=== PATIENT | male | born 1950 | race Caucasian/White ===

== ENCOUNTER → 2024-04-20 06:08 | Outpatient (REF) | payer MEDICARE, BC, SELFPAY ==
[2024-04-20 09:26] LABS: ALT (SGPT) 21 U/L (0-50); AST (SGOT) 23 U/L (17-59); Albumin 4.6 g/dl (3.5-5.0); Blood Urea Nitrogen 30 mg/dl (9-20); Calcium 9.5 mg/dl (8.4-10.2); Carbon Dioxide 31 mmol/L (22-30); Chloride 96 mmol/L (98-107); Glucose 156 mg/dl (70-99); HDL Cholesterol 54 mg/dl; LDL Cholesterol, Calculated 24 mg/dl; Phosphorus 3.8 mg/dl (2.5-4.5); Potassium 4.3 mmol/L (3.5-5.1); Sodium 139 mmol/L (135-145); Total Cholesterol 93 mg/dl (50-199); Triglyceride 77 mg/dl (10-149); Very Low Density Lipoprotein 15 mg/dl (0-30); eGFR > 60.00
== END ==
LOC: HWLAB 06:08
PROVIDERS: ATTENDING PHYSICIAN Internal Medicine Cardiovascular Disease; FAMILY PHYSICIAN Internal Medicine
DX: I48.0 Paroxysmal atrial fibrillation (principal); I50.22 Chronic systolic (congestive) heart failure; E78.00 Pure hypercholesterolemia, unspecified
CPT/HCPCS: 36415; 80061; 80069; 84450; 84460

== ENCOUNTER → 2024-10-11 10:23 | Outpatient (REF) | payer MEDICARE, BC, SELFPAY | LOC: MRI 3T 10:23 | PROVIDERS: ATTENDING PHYSICIAN Urology; FAMILY PHYSICIAN Internal Medicine | DX: R97.20 Elevated prostate specific antigen [PSA] (principal) | CPT/HCPCS: 72197; A9575 ==

== ENCOUNTER 2024-10-16 17:30 | Emergency (ER) | payer MEDICARE, BC, SELFPAY ==
[2024-10-16 17:33] VITALS: BP 165/81
[2024-10-16 17:55] LABS: % Basophils 0.5 % (0-2); % Eosinophils 2.1 % (0-6); % Immature Granulocytes 0.4 % (0-0.5); % Lymphocytes 17.8 % (20.5-51.1); % Monocytes 6.4 % (1.7-9.3); % Neutrophils 72.8 % (42.2-75.2); Absolute Basophils 0.1 10^3/uL (0-0.2); Absolute Eosinophils 0.2 10^3/uL (0-0.7); Absolute Lymphocytes 1.7 10^3/uL (1.2-3.4); Absolute Monocytes 0.6 10^3/uL (0.1-0.6); Absolute Neutrophils 6.9 10^3/uL (1.4-6.5); Hematocrit 41.2 % (39.0-52.0); Hemoglobin 13.6 g/dL (13.0-18.0); Mean Corpuscular Hgb 27.3 pg (27.0-31.0); Mean Corpuscular Volume 82.6 fL (80.0-94.0); Mean Platelet Volume 10.8 fL (7.4-10.4); Nucleated Red Blood Cells % 0 % (-); Platelet Count 202 10^3/uL (130-400); Red Blood Cell Count 4.99 10^6/uL (4.70-6.10); Red Cell Dist. Width 13.5 % (11.5-14.5); White Blood Cell Count 9.4 10^3/uL (4.8-10.8)
[2024-10-16 18:10] LABS: ALT (SGPT) 25 U/L (0-50); AST (SGOT) 25 U/L (17-59); Albumin 4.7 g/dl (3.5-5.0); Alkaline Phosphatase 51 U/L (38-126); Blood Urea Nitrogen 20 mg/dl (9-20); Calcium 9.8 mg/dl (8.4-10.2); Carbon Dioxide 28 mmol/L (22-30); Chloride 102 mmol/L (98-107); Glucose 208 mg/dl (70-99); Potassium 4.8 mmol/L (3.5-5.1); Sodium 139 mmol/L (135-145); Total Bilirubin 0.5 mg/dl (0.2-1.3); Total Protein 7.2 g/dl (6.3-8.2); eGFR > 60.00
[2024-10-16 19:48] VITALS: BP 157/104
[2024-10-16 19:52] VITALS: BMI 29.7
--- NOTE | 2024-10-16 20:12 | ED.GENMED ---
History of Present Illness
General
Chief Complaint: Heart Rate Problem
Source: patient
Exam Limitations: none
Time Seen by Provider: 10/16/24 20:11
Nursing documentation reviewed up to this point in time: agreed with
History of Present Illness
History of Present Illness:
The patient is a 74-year-old man with a past medical history of A-fib and a flutter, on Eliquis, who presents with feelings of being in A-fib. Patient reports that at times he feels slightly short of breath but currently has no shortness of breath.
He denies all lightheadedness and chest pain. Patient reports he feels well. Patient reports he is due for a cardiac echo tomorrow and has an appointment for this. He denies leg pain and leg swelling. He denies cough and fever.
Past History
Past History
ED Past Medical History: Arrthythmia, HTN and NIDDM
ED Past Surgical History: Other
Social History
Tobacco: Former smoker
Alcohol: None
Drug: None
Personal:
Living: with family
Employment: Other
Family History
Family History: Other
Review of Systems
Review of Systems
Allergies reviewed?: Yes
All Other Systems: ROS reviewed and negative except as documented in HPI and ROS
Constitutional: Reports no symptoms
EENT: Reports no symptoms
Respiratory: Reports trouble breathing
Cardiac: Reports no symptoms
ABD/GI: Reports no symptoms
: Reports no symptoms
Musculoskeletal: Reports no symptoms
Skin: Reports no symptoms
Neurological: Reports no symptoms
Endocrine: Reports no symptoms
Hematologic/Lymphatic: Reports no symptoms
Psychiatric: Reports no symptoms
Phy Exam
Physical Exam
Physical Exam:
Physical Exam
General: no apparent distress, not acutely ill. Well appearing, smiling and conversational
Neck: supple. no meningeal signs. normal psoterior pharynx
Heart: Regular rate, irregular rhythm
Lungs: no acute respiratory distress. clear bilaterally. Breathing comfortably. No crackles
Abdomen: normal bowel sounds. not tender. no CVAT
Neuro: alert and oriented. no focal neurological deficits
Skin: no rash
Psychiatric: well kept. interactive and cooperative
Extremities: no edema. no calf tenderness. negative homans. good distal pulses
Course
Orders/Labs/Results
Orders:
Orders
10/16/24 17:32
Electrocardiogram (*1) Urgent
Reason for Study: Atrial Fibrillation
EKG- Treatment ONCE
10/16/24 17:47
Complete Blood Count/With Diff Urgent
Comprehensive Metabolic Panel Urgent
Abnormal Lab Results
10/16/24
17:47
MPV 10.8 H fL
(7.4-10.4)
Absolute Neuts (auto) 6.9 H 10^3/uL
(1.4-6.5)
Lymphocytes % 17.8 L %
(20.5-51.1)
Glucose 208 H mg/dl
(70-99)
10/16/24 17:47
10/16/24 17:47
Vital Signs
Initial and Last Documented VS:
Initial Vital Signs
Temp Pulse Resp BP Pulse Ox
97.7 F 75 18 165/81 98
10/16/24 17:33 10/16/24 17:33 10/16/24 17:33 10/16/24 17:33 10/16/24 17:33
Last Documented Vital Signs
Temp Pulse Resp BP Pulse Ox
97.7 F 95 21 157/104 98
10/16/24 17:33 10/16/24 19:49 10/16/24 19:49 10/16/24 19:48 10/16/24 19:49
MDM/Problems Addressed
Differential Diagnosis Includes:
Acute exacerbation of a flutter, CHF, pneumonia
MDM/Problems Addressed:
Patient presents with acute A flutter with rates from 80s to 120
Chronic conditions affecting care: Arrhythmia
Acute Exacerbation and/or Progression of Chronic Illness:
Patient has acute a flutter
*Pulse Oximetry
Patient hypoxic: no (98% on room air)
*EKG
Interpreted by ED Provider?: Yes
Interpretation: abnormal
Comparison EKG: changes noted
Rate: normal
Rhythm: atrial flutter
[place]: normal axis
Interval: normal interval
QRS Pattern: normal QRS
Ischemia: non-specific ST changes
*Genetic Counselor Interpretation
Rate: normal
Interpretation: abnormal
Rhythm: atrial flutter
*Critical Care Note
Total Time (30-74mins, 75-104mins- exclusive of procedures): Not Applicable
Data Reviewed
Review of Other/Old Records Reveals: Testing (Normal cardiac echo 2022)
Source: patient
Patient Management
Social determinants of health affecting care: Living situation and Strong social support
Escalation/DeEscalation of care consider admission/obs:
Patient appears extremely comfortable and well. He denies current shortness of breath to me. He denies all chest pain and dizziness. Patient reports he is not even able to really tell he is in A flutter. Heart rate is generally below 100. The
highest I have seen it is 120 but patient is asymptomatic. Therefore, I feel patient could go home. He is on Eliquis and states he is compliant with it
ED Attending Note
-
Portions of this chart may have been created with voice recognition software.� Occasional wrong word or��sound alike� substitutions may have occurred due to the inherent limitations of voice recognition software.
Discharge Plan
Departure
Patient Disposition: Home (Routine Discharge)
Date of Disposition: 10/16/24
Time of Disposition: 20:25
Patient with high blood pressure during this ER visit?: Yes
Condition: Good
Covid-19: Not Applicable
Discharge Problem:
Atrial flutter
Instructions: Atrial fibrillation and atrial flutter - ED discharge instructions, BLOOD PRESSURE
Prescriptions:
No Action
loratadine 10 MG tablet
10 mg PO DAILYPRN PRN (Reason: allergy/cold symptoms)
Eliquis 5 MG tablet
5 mg PO BID Qty: 60 3RF
furosemide [Lasix] 40 MG tablet
40 mg PO DAILY Qty: 30 3RF
metoprolol succinate 50 MG tablet extended release 24 hr
50 mg PO DAILY Qty: 30 3RF
spironolactone 25 mg Tablet
25 mg PO QID
losartan 100 mg Tablet
100 mg PO DAILY
rosuvastatin 5 mg Tablet
5 mg PO DAILY
insulin degludec [Tresiba FlexTouch U-100] 100 unit/mL (3 mL) Insulin Pen
14 unit SC DAILY
dapagliflozin propanediol [Farxiga] 10 mg Tablet
10 mg PO DAILY
Activity Restrictions/Additional Instructions:
Follow-up with your cardiac echo tomorrow. Return with any feelings of faintness, chest pain or shortness of breath
Interventions
Interventions:
*Risk Screen - Suicide Last Done: 10/16/24 17:33
*General Assessment Last Done: 10/16/24 17:33
*Neglect/Abuse Screening Last Done: 10/16/24 19:52
*ED- Fall Risk Assessment Last Done: 10/16/24 19:52
*ED COVID-19 Vaccine History Last Done: 10/16/24 19:52
*Nursing Disposition Last Done: 10/16/24 20:31
ED- Cardiac Assessment Last Done: 10/16/24 20:18
ED- Pulmonary Assessment Last Done: 10/16/24 20:18
Discharge Date and Time
Discharge Date/Time: 10/16/24 20:39
Print Language: MAORI
== END 2024-10-16 20:39 | disposition home or self-care (01) ==
LOC: EMR 17:30
PROVIDERS: EMERGENCY PHYSICIAN Emergency Medicine
DX: I48.92 Unspecified atrial flutter (principal); I48.91 Unspecified atrial fibrillation; E11.9 Type 2 diabetes mellitus without complications; I10 Essential (primary) hypertension; Z79.01 Long term (current) use of anticoagulants; Z87.891 Personal history of nicotine dependence
CPT/HCPCS: 99284; 80053; 85025; 93005

== ENCOUNTER → 2024-10-17 09:26 | Outpatient (REF) | payer MEDICARE, BC, SELFPAY | LOC: RCS 09:26 | PROVIDERS: ATTENDING PHYSICIAN Internal Medicine Cardiovascular Disease; FAMILY PHYSICIAN Internal Medicine | DX: I48.91 Unspecified atrial fibrillation (principal) | CPT/HCPCS: 93005 ==

== ENCOUNTER 2024-10-21 09:19 | Day surgery (SDC) | payer MEDICARE, BC, SELFPAY ==
[2024-10-21 10:12] LABS: Glucose - Point of Care 147 mg/dl (70-99)
== END 2024-10-21 10:46 | disposition home or self-care (01) ==
LOC: CATH 09:19
PROVIDERS: ATTENDING PHYSICIAN Student in an Organized Health Care Education/Training Program; FAMILY PHYSICIAN Internal Medicine; OTHER PHYSICIAN Internal Medicine Cardiovascular Disease
DX: I48.92 Unspecified atrial flutter (principal); I48.0 Paroxysmal atrial fibrillation; I10 Essential (primary) hypertension; I70.0 Atherosclerosis of aorta; E11.9 Type 2 diabetes mellitus without complications; Z87.891 Personal history of nicotine dependence; Z79.01 Long term (current) use of anticoagulants; Z79.84 Long term (current) use of oral hypoglycemic drugs; Z79.4 Long term (current) use of insulin
CPT/HCPCS: 82962; 92960; 93005

== ENCOUNTER 2024-12-11 16:03 | Inpatient (IN) | payer MEDICARE, BC, SELFPAY ==
[2024-12-11] VITALS (20 sets, daily range): BP systolic 74–182; BP diastolic 47–115; BMI 29.8
[2024-12-11 14:12] LABS: Hematocrit 39.8 % (39.0-52.0); Hemoglobin 13.0 g/dL (13.0-18.0); Mean Corp Hgb Conc. 32.7 g/dL (33.0-37.0); Mean Corpuscular Volume 82.7 fL (80.0-94.0); Nucleated Red Blood Cells % 0 % (-); Platelet Count 195 10^3/uL (130-400); Red Cell Dist. Width 14.7 % (11.5-14.5)
[2024-12-11 14:29] LABS: ALT (SGPT) 24 U/L (0-50); AST (SGOT) 28 U/L (17-59); Albumin 4.9 g/dl (3.5-5.0); Alkaline Phosphatase 47 U/L (38-126); Blood Urea Nitrogen 26 mg/dl (9-20); Calcium 9.9 mg/dl (8.4-10.2); Carbon Dioxide 31 mmol/L (22-30); Chloride 98 mmol/L (98-107); Glucose 185 mg/dl (70-99); Potassium 4.9 mmol/L (3.5-5.1); Sodium 137 mmol/L (135-145); Total Protein 7.4 g/dl (6.3-8.2); eGFR > 60.00
--- NOTE | 2024-12-11 14:30 | ED.GENMED ---
History of Present Illness
General
Chief Complaint: Rectal Bleeding
Source: patient
Exam Limitations: none
Time Seen by Provider: 12/11/24 14:19
History of Present Illness
History of Present Illness:
74yoM with a history of atrial fibrillation on Eliquis presenting for evaluation of rectal bleeding. Patient underwent a prostate biopsy 2 days ago at [facility] with Dr. Aurelio Agosto. His Eliquis was held for 2 days before the procedure
and resumed the night of the procedure. He has been having minor bleeding since the biopsy. He had a BM this morning which was normal. He felt like he had to have another BM about an hour ago. He passed a large amount of dark red blood with
clots and came to the ED. He continues to report active bleeding. No dizziness, syncope, shortness of breath.
Past History
Past History
ED Past Medical History: Arrthythmia, HTN and NIDDM
ED Past Surgical History: Other
Social History
Tobacco: Former smoker
Alcohol: None
Drug: None
Personal:
Living: with family
Employment: Other
Family History
Family History: Other
Phy Exam
General Physical Exam
General Presentation: well appearing
General Skin: warm and dry
General Habitus: normal
General Mental: alert
ENT Exam
ENT Exam: normocephalic
Gastrointestinal Exam
Gastrointestinal Exam: non tender, soft and non distended
Rectal Exam: other (Bright red blood oozing from rectum with large amount of blood on diaper.)
Neurological Exam
Neurological Exam: alert
Oxford Coma Scale
Eye Opening: Spontaneous
Verbal Response: Oriented
Motor Response: Obeys Commands
GCS Total Score: 15
Skin Exam
Skin Exam: normal color and warm/dry
Psychiatric Exam
Psychiatric Exam: normal mood/affect
Course
Orders/Labs/Results
Orders:
Orders
12/11/24 13:55
Cardiac Monitoring- Treatment ONCE
12/11/24 14:00
Type+Screen Urgent
Complete Blood Count/With Diff Urgent
Comprehensive Metabolic Panel Urgent
PTT Urgent
Prothrombin Time Urgent
12/11/24 14:33
Cardiac Monitoring- Treatment ONCE
12/11/24 15:05
ColoRectal Surgery Consult Urgent
Consulting Provider: Errol Miller
Was physician already notified: Yes
12/11/24 15:12
Prothrombin Complex(Pcc),Human [Kcentra] 2,126 unit Empty Viaflex Container 100 ml [Viaflex Empty Container] 80 ml IV NOW
Does patient have a dx of serious acute active bleeding?: Yes
Does patient have prior history of HIT?: No
12/11/24 15:32
Admit/Transfer Patient As Directed
Co-Sign Provider:
Level of Care: Inpatient admission
Assign to:: IMU- Intermediate Care
Physician / Group: dinah
Diagnosis: rectal bleeding
Reason for Hospitalization: rectal bleeding
Expected length of stay greater than two midnights?: Yes
ELOS- Estimated Length of Stay in days: 2
I certify the patient meets the requirements for IP care: Yes
PRN Pain Medication Management As Directed
May give lesser potent ordered pain med per pt: Yes
preference::
Protocol:: Medication orders for pain may be administered in a
manner that supports deferring to patient preference
when the pt is:
- Requesting an ordered lesser potent pain medication.
Least to most potent pain medications are defined
as: acetaminophen < NSAID < tramadol < opioids
(morphine, oxycodone, hydromorphone).
- Requesting a lesser dose of the same medication IF
ORDERED.
- Requesting a less intrusive route of administration
if both routes are prescribed by the provider (PO <
IV).
12/11/24 15:33
Code Status As Directed
Resuscitation Status: Full Code
12/11/24 20:06
Activity As Directed
Activity Level: As Tolerated
Pneumatic Compression Sleeves As Directed
Type: Knee high
Vital Signs As Directed
Frequency: Per unit guidelines
DX Deep Vein Thrombosis Video Routine
12/12/24 06:00
Complete Blood Count/With Diff IN AM
Comprehensive Metabolic Panel IN AM
Abnormal Lab Results
12/11/24
14:00
MCHC 32.7 L g/dL
(33.0-37.0)
RDW 14.7 H %
(11.5-14.5)
Absolute Monos (auto) 0.7 H 10^3/uL
(0.1-0.6)
APTT 36.3 H Sec
(23.4-35.0)
Carbon Dioxide 31 H mmol/L
(22-30)
BUN 26 H mg/dl
(9-20)
Glucose 185 H mg/dl
(70-99)
Crossmatch IS Only See Detail
12/11/24 14:00
12/11/24 14:00
Vital Signs
Initial and Last Documented VS:
Initial Vital Signs
Temp Pulse Resp BP Pulse Ox
97.6 F 83 18 182/84 96
12/11/24 13:52 12/11/24 13:52 12/11/24 13:52 12/11/24 13:52 12/11/24 13:52
Last Documented Vital Signs
Temp Pulse Resp BP Pulse Ox
97.4 F 86 14 136/80 100
12/11/24 19:50 12/11/24 20:15 12/11/24 20:15 12/11/24 20:15 12/11/24 20:15
MDM/Problems Addressed
Differential Diagnosis Includes:
74yoM here with heavy rectal bleeding x 1 hour. Prostate biopsy 2 days ago. On Eliquis for afib. He is hypertensive with otherwise stable vitals. Large amount of blood on his diaper with active oozing from the rectum. Differential diagnosis
includes: prostate bleeding, hemorrhoidal bleeding, acute blood loss anemia
Labs obtained in triage show a hemoglobin of 13.0. I reached out to urology who recommended colorectal surgery consult. Dr. Miller saw patient at bedside and Kcentra ordered. Patient admitted for further management.
*Pulse Oximetry
SaO2: 96
Oxygen Mode of Delivery: Room air
Patient hypoxic: no (96%)
*Critical Care Note
Total Time (30-74mins, 75-104mins- exclusive of procedures): Not Applicable
ED Attending Note
-
Portions of this chart may have been created with voice recognition software.� Occasional wrong word or��sound alike� substitutions may have occurred due to the inherent limitations of voice recognition software.
Discharge Plan
Departure
Patient Disposition: Admit
Date of Disposition: 12/11/24
Time of Disposition: 15:07
Presentation/result/management discussed w/ accepting MD/DO: Hospitalist
Discharge Problem:
Rectal bleeding
Interventions
Interventions:
*Risk Screen - Suicide Last Done: 12/11/24 13:52
*General Assessment Last Done: 12/11/24 15:43
*Neglect/Abuse Screening Last Done: 12/11/24 13:54
*ED- Fall Risk Assessment Last Done: 12/11/24 15:43
*ED COVID-19 Vaccine History Last Done: 12/11/24 15:43
*Nursing Disposition Last Done: 12/11/24 18:58
IF-Iaygeo-Rbviwhffwb Assessment Last Done: 12/11/24 16:17
ED- Cardiac Assessment Last Done: 12/11/24 16:16
ED- Pulmonary Assessment Last Done: 12/11/24 16:16
Discharge Date and Time
Discharge Date/Time: 12/11/24 18:59
[2024-12-11 14:31] LABS: INR 1.08; PT 14.3 Sec (11.4-14.6)
[2024-12-11 14:32] LABS: APTT 36.3 Sec (23.4-35.0)
[2024-12-11] MEDS: KCENTRA 80 UNIT IV (15:33)
--- NOTE | 2024-12-11 15:39 | HPS.HSE ---
Addendum entered and electronically signed by Derik Maldonado MD 12/11/24 17:58:
Patient started developing dizziness. Repeat blood pressure 74/47. Patient continues to have mild oozing rectal bleeding. IV fluids being given. 2 units of blood ordered. I let colorectal surgery know, with plan for emergent plan for OR.
Held all diuretics and antihypertensive medications.
Decrease Tresiba to 8 units.
Addendum entered and electronically signed by Derik Maldonado MD 12/11/24 17:07:
Patient with continued bleeding. Check H&H now and q6. NPO past midnight.
Addendum entered and electronically signed by Derik Maldonado MD 12/11/24 16:35:
Started on 5 day course of Cipro 2 days ago. Continue.
Original Note:
Family Physician
-
Family Physician: Corina Ramírez
Chief Complaint
-
rectal bleeding
History of Present Illness
74-year-old male past medical history of atrial fibrillation on Eliquis, cardiomyopathy, hypertension, diabetes, presenting with rectal bleeding. Patient underwent prostate biopsy 2 days ago at at [facility] with Dr. Aurelio Agosto. He
underwent this procedure due to elevated PSA. He did not have any urinary symptoms prior to the procedure.
The day after the procedure he did have some mild rectal bleeding but this had resolved until today. He also did have some blood in the urine without clots but this has been improving. Eliquis was held for 2 days before the procedure and resume the
night of the procedure.
Today he had massive amount of rectal bleeding that was bright red as well as dark with clots. He denies any rectal pain. He has some pain across his lower abdomen. Denies nausea or vomiting. Denies fevers or chills.
Denies smoking. Drinks alcohol occasionally. Denies drugs.
Medical History
Past Medical History
Past Medical History: Reports Other (atrial fibrillation on Eliquis, cardiomyopathy, hypertension, diabetes)
Past Surgical History: Reports None
Social History
Tobacco: Non-smoker
Alcohol: None
Drug: None
Family History
Family History: Not pertinent
Allergies / Home Medications
Allergies reflects when Allergies were last updated in [employer].
Home Medications with original date entered in [employer]
Allergy/Medication List:
Allergies
Allergy/AdvReac Type Severity Reaction Status Date / Time
codeine Allergy Nausea Verified 10/16/24 17:32
Penicillins Allergy Rash Verified 10/16/24 17:32
Home Medications
loratadine 10 mg tablet 10 mg PO DAILYPRN PRN allergy/cold symptoms 08/12/16
apixaban 5 mg tablet (Eliquis) 5 mg PO BID ##60 08/15/16
dapagliflozin propanediol 10 mg tablet (Farxiga) 10 mg PO DAILY 10/16/24
insulin degludec 100 unit/mL (3 mL) subcutaneous pen (Tresiba FlexTouch U-100 insulin) See Rx Instructions .Route .COMPLEX 10/16/24
losartan 100 mg tablet 100 mg PO DAILY 10/16/24
rosuvastatin 5 mg tablet 5 mg PO DAILY 10/16/24
spironolactone 25 mg tablet 25 mg PO Q OTHER DAY 10/16/24
furosemide 40 mg tablet (Lasix) 40 mg PO PRN PRN weight gain 10/21/24
insulin aspart U-100 100 unit/mL (3 mL) subcutaneous pen 14 unit SC TID 10/21/24
metformin 1,000 mg tablet 1,000 mg PO BID 10/21/24
metoprolol succinate 50 mg tablet,extended release 24 hr 100 mg PO DAILY 10/21/24
Review of Systems
-
Constitutional: Reports No Symptoms
EENT: Reports No Symptoms
Respiratory: Reports No Symptoms
Cardiac: Reports No Symptoms
Abdomen/GI: Reports No Symptoms
: Reports No Symptoms
Musculoskeletal: Reports No Symptoms
Skin: Reports No Symptoms
Neurological: Reports No Symptoms
Endocrine: Reports No Symptoms
Hematologic/Lymphatic: Reports No Symptoms
Psych: Reports No Symptoms
Physical Exam
Vital Signs
Vital Signs
Temp Pulse Resp BP Pulse Ox
97.6 F 83 18 182/84 96
12/11/24 13:52 12/11/24 13:52 12/11/24 13:52 12/11/24 13:52 12/11/24 14:33
Physical Exam
General: Well Developed, Well Nourished and No Apparent Distress
HEENT: NormoCephalic, Moist mucous membranes and Atraumatic
Respiratory: Clear
Cardiac: S1/S2 and Regular Rhythm; No Murmur or Rub
GI: Soft, Non Tender, Non Distended and Normal Bowel Sounds; No Organomegaly
Rectal: Deferred by Provider
Musculoskeletal: No Clubbing, No Cyanosis and No Edema
Skin: No Rash
Neuro: Nonfocal/grossly intact
Laboratory Results
-
12/11/24 14:00
12/11/24 14:00
Laboratory Results
PT 14.3 Sec (11.4-14.6) 12/11/24 14:00
INR 1.08 12/11/24 14:00
APTT 36.3 Sec (23.4-35.0) H 12/11/24 14:00
Total Bilirubin 0.8 mg/dl (0.2-1.3) 12/11/24 14:00
AST 28 U/L (17-59) 12/11/24 14:00
ALT 24 U/L (0-50) 12/11/24 14:00
Alkaline Phosphatase 47 U/L (38-126) 12/11/24 14:00
Data Reviewed
-
Lab Data: Labs Reviewed by me
Old Records: Reviewed
Impression/Plan
-
IMPRESSION:
PLAN:
# Rectal bleeding secondary to prostate biopsy in the setting of Eliquis use
- Hemoglobin 13
-Hold Eliquis
-Kcentra to be given
- Colorectal surgery consulted, may need cauterization
- Clear liquid diet for now, advance if bleeding resolves
# Elevated PSA Status post prostate biopsy 2 days ago
- Hematuria is improving and patient voiding normally
Atrial fibrillation unspecified type
- Hold Eliquis
- Continue metoprolol
History of cardiomyopathy
- Continue dapagliflozin
- Continue Lasix
- Continue spironolactone
Essential hypertension
- Continue losartan
Type 2 diabetes
- Continue Tresiba reduced from 16 to 12 units
- Insulin sliding scale
- Hold metformin
Full code
DVT prophylaxis�SCDs
Clear liquid diet
--- NOTE | 2024-12-11 16:13 | CM ---
CM reviewed chart and met with pt bedside in ED. Lives with , ranch style home with basement, 1 [address].
Independent in ADLs, personal care and ambulation at baseline. Still drives and rides his motorcycle.
Currently has [facility] through Dr Jones's office that does diabetic teaching, no hx SNF
PCP: Corina Ramírez
Pharmacy: [facility] [address] [place]
CM will continue to follow for all discharge planning needs.
--- NOTE | 2024-12-11 16:48 | CON.GS ---
Addendum entered and electronically signed by Errol Miller MD 12/11/24 17:34:
Will give a dose of TXA as well to help with hemostasis.
Original Note:
Consultation
-
Date/Time Consultation Performed: 12/11/24 1515
Medical History
-
Chief Complaint: rectal bleeding
History of Present Illness:
Mr Alegria is a 74 yo male with a h/o AF on Eliquis (LD this am), CHF, DM, HTN, and recent prostate bx on 12/09/24. He tolerated the procedure well and resumed his Eliquis the following day as he notes he was instructed by his urology Dr. Agosto
of [facility]. He took his motorcycle out for a ride and did notice some light hematuria but was able to have a normal BM. This morning, again, he had a normal brown BM and continued his Eliquis as scheduled. Early this afternoon, he felt
the sensation to defecate and passed a large amount of bright red blood rectally. He has been dripping blood since that time and is wearing depends for absorption. He has some mild pelvic pressure but otherwise denies pain. He denies n/v. He denies
fevers or chills.
Past Medical History
Past Medical History: Arrhythmias (AF on Eliquis LD 12/11/24 AM, s/p caridoversion on 10/21/24), CHF, HTN, Hypercholesterolemia, NIDDM and Other
Social History
Tobacco: Former Smoker
Alcohol: None
Family History
Family History: Reviewed & Not Pertinent
Allergies / Home Medications
Allergy/AdvReac Type Severity Reaction Status Date / Time
codeine Allergy Nausea Verified 10/16/24 17:32
Penicillins Allergy Rash Verified 10/16/24 17:32
�Medication �Instructions �Recorded �Confirmed �Type
loratadine 10 mg tablet 10 mg PO DAILY 08/12/16 12/11/24 History
apixaban 5 mg tablet (Eliquis) 5 mg PO BID ##60 08/15/16 12/11/24 Rx
dapagliflozin propanediol 10 mg 10 mg PO DAILY 10/16/24 12/11/24 History
tablet (Farxiga)
losartan 100 mg tablet 100 mg PO DAILY 10/16/24 12/11/24 History
rosuvastatin 5 mg tablet 5 mg PO DAILY 10/16/24 12/11/24 History
furosemide 40 mg tablet (Lasix) 40 mg PO PRN PRN weight gain 10/21/24 12/11/24 History
metformin 1,000 mg tablet 1,000 mg PO BID 10/21/24 12/11/24 History
metoprolol succinate 50 mg 50 mg PO DAILY 10/21/24 12/11/24 History
tablet,extended release 24 hr
ciprofloxacin HCl 500 mg tablet 500 mg PO BID 12/11/24 12/11/24 History
insulin aspart U-100 100 unit/mL See Rx Instructions .Route .COMPLEX 12/11/24 12/11/24 History
(3 mL) subcutaneous pen
insulin degludec 100 unit/mL (3 16 unit SC DAILY 12/11/24 12/11/24 History
mL) subcutaneous pen (Tresiba
FlexTouch U-100 insulin)
levomefolate Ca 3 mg-B6 35 1 cap PO BID 12/11/24 12/11/24 History
mg-meB12 2 mg-algal oil 90.314 mg
capsule (Foltanx RF)
lidocaine HCl 4 %-menthol 1 % 1 applic topical BID PRN foot pain 12/11/24 12/11/24 History
topical solution roll-on (Nervive
Pain Relieving)
spironolactone 25 mg tablet 25 mg PO Q48H 12/11/24 12/11/24 History
Review of Systems
-
History Source: Patient and Family
All other systems: Negative unless noted
A 10 point review of systems was completed, and was negative except as per HPI.
Physical Exam
Vital Signs
Temp Pulse Resp BP Pulse Ox
97.6 F 103 24 164/81 96
12/11/24 13:52 12/11/24 16:01 12/11/24 15:30 12/11/24 15:00 12/11/24 16:16
12/10/24 12/11/24 12/12/24
06:59 06:59 06:59
Actual Weight 94.3 kg
Lab Results
12/11/24 14:00
12/11/24 14:00
WBC 8.5 10^3/uL (4.8-10.8) 12/11/24 14:00
Hgb 13.0 g/dL (13.0-18.0) 12/11/24 14:00
Hct 39.8 % (39.0-52.0) 12/11/24 14:00
Plt Count 195 10^3/uL (130-400) 12/11/24 14:00
Abs Immat Gran (auto) 0.0 10^3/uL (0-0.05) 12/11/24 14:00
Neutrophils % 64.7 % (42.2-75.2) 12/11/24 14:00
Physical Exam
General: Well Developed and Well Nourished
HEENT: Normocephalic and Moist Mucous Membranes
Respiratory: Non Labored Respirations
GI: Soft, Non Tender and Non Distended
Rectal: Red (BRB noted in rectum)
Skin: Warm and Dry
Neuro: Awake, Alert and AO x 3
Psych: Calm
Assessment / Plan
-
74 yo male h/o AF on Eliquis (LD this am), CHF, DM, HTN, and recent prostate bx on 12/09/24 who resumed his Eliquis on 12/10 who presents with rectal bleeding. Vital signs stable. Initial hemoglobin within normal range. No leukocytosis or fevers.
Plan:
Discussed with ED provider, would recommend reversal of Eliquis with KCentra given active bleeding
NPO after MN for rectal exam under anesthesia if bleeding has not resolved
Trend h/h
c/w ciprofloxacin ppx given recent biopsy
Medical management as per medical team
[2024-12-11 17:11] LABS: Hematocrit 36.3 % (39.0-52.0); Hemoglobin 12.2 g/dL (13.0-18.0)
[2024-12-11] MEDS: TRANEXAMIC ACID 100 IV (17:34)
[2024-12-11 17:44] LABS: Glucose - Point of Care 195 mg/dl (70-99)
--- NOTE | 2024-12-11 19:19 | W.PN.UPDATE ---
Update Note
Progress Note Update
Notified by ER that patient continues to bleed and BP in 60s. I recommended anorectal EUA with potential ligation of bleeder. Risks/benefits discussed and patient agreed to proceed.
--- NOTE | 2024-12-11 19:51 | W.IMMPOSTOP ---
Surgical Immed Post Op Note
-
Primary Surgeon: Dante Miller MD
Assisting Surgeon: none
Pre-op Diagnosis: rectal bleeding
Post-op Diagnosis: same
Procedure Performed: anorectal exam under anesthesia
Anesthesia Type: general plus local
Specimen / Cultures: none
Estimated Blood Loss: 1 cc (50 cc old blood)
Complications: no immediate
Operative Findings: old blood in rectum without obvious active bleeding at distal rectum/anus
Has gelfoam anal tampon placed into anorectum.
Keep npo overnight except ice chips.
[2024-12-11 20:13] LABS: Glucose - Point of Care 179 mg/dl (70-99)
[2024-12-11] MEDS: CIPRO 500 MG PO (21:54)
[2024-12-11] MEDS: ANESTHETIC LOZENGE 1 LOZENGE PO (23:37)
[2024-12-11 23:46] LABS: Glucose - Point of Care 230 mg/dl (70-99)
[2024-12-11 23:57] LABS: Hematocrit 32.9 % (39.0-52.0); Hemoglobin 11.1 g/dL (13.0-18.0)
[2024-12-12] VITALS (12 sets, daily range): BP systolic 113–150; BP diastolic 52–100; BMI 29.2
[2024-12-12] MEDS: NOVOLOG FLEXPEN-LOW RESISTANCE 2 UNITS SC ×4 (00:36→17:58)
--- NOTE | 2024-12-12 03:39 | PTCARENOTE ---
Received verbal report from JUSTINE Reddy. Pt arrived via stretcher from PACU. NSR on monitor. SpO2 was 99% on 2L NC. Currently 92% on RA. Pt c/o throat discomfort, Rx received for lozenge. Anal tampon in place with no signs of active bleeding. H&H
11.1 at 2340. ALBAN Juares notified and this RN was instructed to not infuse the second unit of blood, which was Rx'd in the ED. Assessment and vitals as documented. Admission completed. Pt resting in bed with call enriquez in reach.
[2024-12-12] MEDS: ANESTHETIC LOZENGE 1 LOZENGE PO (06:24)
[2024-12-12 06:34] LABS: Glucose - Point of Care 207 mg/dl (70-99)
[2024-12-12 06:35] LABS: Hematocrit 32.4 % (39.0-52.0); Hemoglobin 10.6 g/dL (13.0-18.0); Mean Corp Hgb Conc. 32.7 g/dL (33.0-37.0); Mean Corpuscular Volume 81.2 fL (80.0-94.0); Nucleated Red Blood Cells % 0 % (-); Platelet Count 187 10^3/uL (130-400); Red Cell Dist. Width 16.9 % (11.5-14.5)
[2024-12-12 07:05] LABS: ALT (SGPT) 20 U/L (0-50); AST (SGOT) 23 U/L (17-59); Albumin 4.0 g/dl (3.5-5.0); Alkaline Phosphatase 36 U/L (38-126); Blood Urea Nitrogen 34 mg/dl (9-20); Calcium 9.0 mg/dl (8.4-10.2); Carbon Dioxide 24 mmol/L (22-30); Chloride 103 mmol/L (98-107); Estimated Creatinine Clearance 66 ml/min; Glucose 206 mg/dl (70-99); Potassium 5.3 mmol/L (3.5-5.1); Sodium 137 mmol/L (135-145); Total Protein 6.2 g/dl (6.3-8.2); eGFR > 60.00
--- NOTE | 2024-12-12 08:03 | W.PN.CRS1 ---
Today's Communication / Plan
-
clears
recheck hemoglobin, if stable, will advance to regular
hold eliquis at least 3 days
Assessment/Plan
-
POD#1 anorectal exam under anesthesia
Hgb 10.6 (11.1), WBC 9.4
-Advance to a clear liquid diet
-Trend hemoglobin q 4 hours. If next one stable, will advance to regular.
-OOB as tolerated
-Pain control
-Okay for d/c later today from our perspective if hemoglobin stable. Recommend holding Eliquis for at least 3 days prior to restarting.
Subjective Data
Procedure
12/11/2024- anal EUA
Subjective Data
Date of Service: December 12, 2024
Patient states the tampon is still in. He has not had any bowel movements overnight. Pain is controlled.
Objective Data
-
Vital Signs
Temp Pulse Resp BP Pulse Ox
97.5 F 81 16 129/52 93
12/12/24 07:39 12/12/24 04:00 12/12/24 04:00 12/12/24 04:00 12/12/24 04:00
Intake & Output
12/11/24 12/12/24 12/13/24
06:59 06:59 06:59
Intake Total 100 / 100
Output Total 1000 / 1000
Balance -900 / -900
Intake:
IV fluids (Total) 100 / 100
Normosol 100 / 100
Blood Product Amount Infused ( 0 / 0
mL)
Packed Rbc Leukoreduced Unit 0 / 0
[id number]
Output:
Urine, Voided 1000 / 1000
Lab Results
12/12/24 06:14
Physical Exam
-
General: No Acute Distress and AOx3
Abdomen: Soft, Non Distended and Non Tender
Rectal: Other (rectal tampon in place - removed)
[2024-12-12] MEDS: LANTUS 0.08 UNITS SC (08:24)
[2024-12-12] MEDS: CRESTOR 5 MG PO (08:24)
[2024-12-12] MEDS: CLARITIN 10 MG PO (08:24)
[2024-12-12] MEDS: CIPRO 500 MG PO ×2 (08:24→20:21)
[2024-12-12 11:00] LABS: Glycohemoglobin (HgbA1c) 7.0 % (4.0-5.6)
[2024-12-12 12:13] LABS: Glucose - Point of Care 246 mg/dl (70-99)
[2024-12-12 12:15] LABS: Hematocrit 32.2 % (39.0-52.0); Hemoglobin 10.5 g/dL (13.0-18.0)
--- NOTE | 2024-12-12 15:52 | CM ---
CM met with pt and spouse bedside- potential dc home later today
Pt notes indep in room and has a WW at home already if needed
Spouse will transport home
IMM from 12/11 remains valid
Discharge Disposition- anticipate home no needs, family transport
--- NOTE | 2024-12-12 16:42 | EDRN ---
TAR end time transcribed from Transfusion form. Unit [id number] was initiated in the ED per TAR documentation. Unit ended in the OR.
--- NOTE | 2024-12-12 16:44 | EDRN ---
Ending vital signs transcribed from transfusion form. Documentation completed in the OR.
[2024-12-12 17:14] LABS: Glucose - Point of Care 208 mg/dl (70-99)
--- NOTE | 2024-12-12 17:37 | W.PN.HOSP.TC ---
Today's Communication/Plan
-
Assessment / Plan
Assessment / Plan
Rectal bleeding with bright red blood and dark blood
Anal exam completed by colorectal surgery and rectum was packed
- Per Mr. Alegria was removed this morning by surgery without evidence of dark blood/bright red blood
Hemoglobin stable
Hemodynamically stable
Hold Eliquis
Follow-up colorectal surgery recommendation
Symptomatic anemia/hemorrhagic shock
Shock resolved after 2 units of PRBC
Bleeding source rectal region
S/p Kcentra
Atrial fibrillation, paroxysmal
Hold Eliquis
Continue beta-blockade
History of HFpEF
GDMT has been held likely in the setting of hemorrhagic shock
Will reinitiate slowly as blood pressure allows
Hypertension
Losartan was not started
Type 2 diabetes
Continue long short acting insulin
Accu-Cheks
Hold metformin
Sliding scale
Anticipated Discharge: 24 - 48 hours
Subjective/Interval History
-
Date of Service: December 12, 2024
Seen and examined. No new complaints. No acute overnight events
Objective Data
-
Labs:
Laboratory Results
12/12/24 12/12/24
06:14 11:54
WBC 9.4
Hgb 10.6 L 10.5 L
Hct 32.4 L 32.2 L
Plt Count 187
Sodium 137
Potassium 5.3 H
Chloride 103
Carbon Dioxide 24
BUN 34 H
Creatinine 1.0
Glucose 206 H
Calcium 9.0
Total Bilirubin 0.8
AST 23
ALT 20
Alkaline Phosphatase 36 L
Vital Signs:
Vital Signs
Temp Pulse Resp BP Pulse Ox
98.1 F 84 22 140/59 96
12/12/24 15:08 12/12/24 16:00 12/12/24 16:00 12/12/24 16:00 12/12/24 16:00
I&O
12/11/24 12/12/24 12/13/24
06:59 06:59 06:59
Intake Total 350 / 350
Output Total 1000 / 1000 700 / 700
Balance -650 / -650 -700 / -700
Physical Exam
-
General: Well Developed and Well Nourished
HEENT: Normocephalic and Atraumatic
Respiratory: Clear to Auscultation
Cardiac: Regular Rhythm and S1/S2
GI: Soft, Nontender and Nondistended
Musculoskeletal: No Clubbing and No Cyanosis
Skin: Warm and Dry
Neuro: Awake, Alert and AO x 3
Psych: Calm
[2024-12-12] MEDS: LASIX 40 MG PO (18:21)
--- NOTE | 2024-12-12 18:25 | PTCARENOTE ---
Pt noted to have elevated HR w/ any activity including just conversing. Pt offers no complaints of discomfort. EKG to be obtained
[2024-12-12] MEDS: TOPROL XL 50 MG PO (18:43)
[2024-12-12 21:09] LABS: Hepatitis C Antibody Negative (Negative)
--- NOTE | 2024-12-12 23:28 | PTCARENOTE ---
Pt with elevated HR to 170s on ambulation, [employer] [facility] notified. Upon resting in bed, HR returned to 90s-low 100s. Pt initially in afib, but occasionally also SR on CM. Denies chest pain/tightness, but does admit to feeling like his 'heart is racing' at
times. Denies additional complaints at this time. Call enriquez within reach.
[2024-12-13] VITALS (9 sets, daily range): BP systolic 114–152; BP diastolic 46–111
[2024-12-13 07:42] LABS: Glucose - Point of Care 282 mg/dl (70-99)
[2024-12-13] MEDS: NOVOLOG FLEXPEN-LOW RESISTANCE 3 UNITS SC (07:58)
[2024-12-13] MEDS: FARXIGA 10 MG PO (07:59)
[2024-12-13] MEDS: CIPRO 500 MG PO ×2 (07:59→19:26)
[2024-12-13] MEDS: TOPROL XL 50 MG PO (07:59)
[2024-12-13] MEDS: LANTUS 0.08 UNITS SC ×2 (07:59→15:34)
[2024-12-13] MEDS: CLARITIN 10 MG PO (08:00)
[2024-12-13] MEDS: CRESTOR 5 MG PO (08:00)
[2024-12-13 08:08] LABS: Glucose - Point of Care 379 mg/dl (70-99)
[2024-12-13 08:58] LABS: Hematocrit 32.7 % (39.0-52.0); Hemoglobin 10.9 g/dL (13.0-18.0)
--- NOTE | 2024-12-13 09:12 | PN.CDI ---
CDI
- -
CDI:
Physician Documentation Request
Admit Date: 12/11/24 16:03
Dear Doctor Vikas,
Clinical Indicators:
Patient admitted with rectal bleeding.
12/12 PN, 'Symptomatic anemia/hemorrhagic shock'
Hgb/Hct trend:
12/11/24 12/11/24 12/12/24
14:00 23:40 11:54
Hgb 13.0 11.1 L 10.5 L
Hct 39.8 32.9 L 32.2 L
Based on the above, could you clarify, in your progress note, which of the following is the most likely type of anemia you are evaluating, monitoring and/or treating?
Acute blood loss anemia
Other, please specify
Use of terms such as suspected, likely, concern for, or probable (associated with a specific diagnosis that is being evaluated, monitored, or treated as if it exists) are acceptable and can be coded in the inpatient setting, when documented at the
time of discharge.
Thank you,
MALATHI Kellogg RN
CDI Specialist
available via tiger text
Please use your independent medical judgment in providing your response.
--- NOTE | 2024-12-13 09:16 | PN.CDI ---
CDI
- -
CDI:
Physician Documentation Request
Admit Date: 12/11/24 16:03
Dear Doctor Vikas,
Clinical Indicators:
Patient admitted with rectal bleeding
s/p Prostate biopsy 12/09; Eliquis resumed 12/10.
Home medications include: Apixaban 5 mg tablet (Eliquis) 5 mg PO BID; on hold since admission.
12/11 Kcentra 2,126 unit IV x 1.
Please clarify the relationship between the rectal bleeding and Eliquis use:
Yes, rectal bleeding is related to/associated with/exacerbated by Eliquis use.
No, rectal bleeding is not related to/associated with/exacerbated by Eliquis use but it is due to ___. (Please specify)
Unable to determine
Use of terms such as suspected, likely, concern for, or probable (associated with a specific diagnosis that is being evaluated, monitored, or treated as if it exists) are acceptable and can be coded in the inpatient setting, when documented at the
time of discharge.
Thank you,
MALATHI Kellogg RN
CDI Specialist
available via tiger text
Please use your independent medical judgment in providing your response.
--- NOTE | 2024-12-13 10:26 | CON.CAR ---
Addendum entered and electronically signed by Elie Olmos MD 12/13/24 13:26:
Patient seen and examined in collaboration with ENGINEER EXHAUSTER; agree with below.
- 74-year-old male with paroxysmal atrial fibrillation (on Eliquis), hypertension, and diabetes admitted with lower GI bleed secondary to recent prostate biopsy.
- The patient has no active cardiac symptoms; went into atrial fibrillation with RVR last night after metoprolol succinate was held.
- Physical examination: Heart regular rate and rhythm, 2/6 systolic murmur; lungs CTA bilaterally; no edema.
- Atrial fibrillation with RVR most likely secondary to holding of metoprolol succinate and anemia.
- Continue current dose of metoprolol succinate 50 mg daily which was resumed last evening.
- Eliquis is being held for active bleeding; can resume in 2 days, per colorectal surgery.
- Will update echocardiogram today.
- If patient is clinically stable overnight and if no acute findings on echocardiogram, can likely be discharged to home tomorrow.
Original Note:
Documented by User: Annita Palm MD, Resident 12/13/24 12:30
Consultation
Consultation Request
Date/Time Consultation Requested: 12/13/24
Date/Time Consultation Performed: 12/13/24
Reason for Consultation: Paroxysmal atrial fibrillation
Medical History
-
Chief Complaint: Rectal bleeding
History of Present Illness:
Patient is a 74-year-old male with past medical history of essential hypertension, diabetes type 2, paroxysmal atrial fibrillation, s/p cardioversion in October 2024 for recurrent atrial flutter who recently had prostate biopsy for elevated PSA levels.
The day after the procedure he developed rectal bleeding. He was symptomatic and received 2 units of blood and Kcentra, and had rectal packing done by colorectal surgery, bleeding has resolved.
Yesterday night, he developed fluttering/palpitations of the chest and was noticed to be in A-fib with rapid ventricular response(rate 176 bpm), received Lopressor. He had recurrent episodes overnight whenever he got up and walked to the washroom
or exerted himself and then he was back in sinus rhythm. This morning, his heart rate has remained stable around 80 bpm and had no episode of A-fib this morning.
He denies any chest pain, shortness of breath, or any syncopal episodes., At home he takes metoprolol succinate 50 mg daily which was on hold and was resumed yesterday. His Eliquis remains on hold due to recent bleed.
His last echocardiogram was done in 2022 that showed an ejection fraction of 60 to 65% with aortic sclerosis but no stenosis.
ETT 2022-poor exercise tolerance reaching 6 minutes and 15 seconds. Abnormal EKG response to exercise. Normal perfusion
Past Medical History
Past Medical History: Arrhythmias (History of PAF with recurrent atrial flutter s/p cardioversion October 2024), HTN, IDDM and Other (Chronic HFpEF,)
Past Surgical History: Urological (History of prostate biopsy 3 days ago) and Other (Cardioversion October 2024)
Social History
Tobacco: Former Smoker (Quit greater than 10 years ago)
Alcohol: Occasional
Drug: None
Personal:
Living: With Family
Employment: Retired
Family History
Family History: Reviewed & Not Pertinent
Allergies / Home Medications
Allergy/AdvReac Type Severity Reaction Status Date / Time
codeine Allergy Nausea Verified 10/16/24 17:32
Penicillins Allergy Rash Verified 10/16/24 17:32
�Medication �Instructions �Recorded �Confirmed �Type
loratadine 10 mg tablet 10 mg PO DAILY 08/12/16 12/11/24 History
apixaban 5 mg tablet (Eliquis) 5 mg PO BID ##60 08/15/16 12/11/24 Rx
dapagliflozin propanediol 10 mg 10 mg PO DAILY 10/16/24 12/11/24 History
tablet (Farxiga)
losartan 100 mg tablet 100 mg PO DAILY 10/16/24 12/11/24 History
rosuvastatin 5 mg tablet 5 mg PO DAILY 10/16/24 12/11/24 History
furosemide 40 mg tablet (Lasix) 40 mg PO PRN PRN weight gain 10/21/24 12/11/24 History
metformin 1,000 mg tablet 1,000 mg PO BID 10/21/24 12/11/24 History
metoprolol succinate 50 mg 50 mg PO DAILY 10/21/24 12/11/24 History
tablet,extended release 24 hr
ciprofloxacin HCl 500 mg tablet 500 mg PO BID 12/11/24 12/11/24 History
insulin aspart U-100 100 unit/mL See Rx Instructions .Route .COMPLEX 12/11/24 12/11/24 History
(3 mL) subcutaneous pen
insulin degludec 100 unit/mL (3 16 unit SC DAILY 12/11/24 12/11/24 History
mL) subcutaneous pen (Tresiba
FlexTouch U-100 insulin)
levomefolate Ca 3 mg-B6 35 1 cap PO BID 12/11/24 12/11/24 History
mg-meB12 2 mg-algal oil 90.314 mg
capsule (Foltanx RF)
lidocaine HCl 4 %-menthol 1 % 1 applic topical BID PRN foot pain 12/11/24 12/11/24 History
topical solution roll-on (Nervive
Pain Relieving)
spironolactone 25 mg tablet 25 mg PO Q48H 12/11/24 12/11/24 History
Review of Systems
-
All other systems: Negative unless noted
Physical Exam
Vital Signs
Temp Pulse Resp BP Pulse Ox
98 F 91 16 121/71 97
12/13/24 07:33 12/13/24 07:59 12/13/24 02:00 12/13/24 07:59 12/12/24 20:35
Lab Results
12/13/24 08:44
12/12/24 06:14
Physical Exam
General: Well Developed, No Apparent Distress and Comfortable
HEENT: Moist Mucous Membranes
Respiratory: Clear; Negative Wheezes, Crackles or Rhonchi
Cardiac: S1/S2 and Regular Rhythm; Negative Murmur, Rub, Peripheral Edema, Calf Tenderness or JVD
GI: Soft, Non Distended and Normal Bowel Sounds
Musculoskeletal: No Clubbing, No Cyanosis and No Edema
Skin: Warm and Dry
Neuro: Awake and AO x 3
Psych: Calm
Impression / Plan
-
Impression
This is a 74-year-old male with history of PAF, s/p cardioversion for recurrent atrial flutter. Admitted with rectal bleeding, noticed to be in A-fib with rapid ventricular response heart rate 176 yesterday. Recurrent episodes.
Metoprolol 50 mg resumed-patient did not had any further episodes this morning
Eliquis remains on hold
Assessment/plan
#Paroxysmal atrial fibrillation
Combination of acute anemia, metoprolol being on hold, recent stress of rectal bleeding on body
Metoprolol was interrupted
On telemetry review, has remained in NSR this morning,would wait for patient to stabilize on metoprolol and make dose adjustments if needed
Currently,Heart rate is well-controlled with metoprolol XL 50 mg daily
Not on any antiarrhythmic drugs
Eliquis on hold-(recent rectal bleed, s/p Kcentra and 2 units of blood)-CRS wants to hold eliquis for 2 more days
Not on any antiarrhythmic drugs
[id number] score-4 points (age 74, hypertension, diabetes, CHF)
Check TSH and A1c
Update echocardiogram
Continue telemetry
#Essential hypertension
Losartan was held for anal exam/packing
Currently blood pressure stable
Resume as able
#Insulin-dependent diabetes mellitus
HbA1c 7
On long and short acting insulin, metformin
Also Farxiga as part of GDMT
#HFpEF
On GDMT-including losartan, spironolactone, Farxiga and beta-whit
Currently losartan and spironolactone on hold
Resume as able

Documented by User: Elie Olmos MD 12/13/24 13:23
Physical Exam
Physical Exam
Cardiac: Murmur (06/09)
Data Reviewed
-
EKG: Tracing Personally Visualized and interpreted (Telemetry: PAF with RVR)
Labs: Labs Reviewed by me, Discussed with Physician and Discussed with Patient
--- NOTE | 2024-12-13 11:13 | W.PN.CRS1 ---
Today's Communication / Plan
-
ok for d/c from our standpoint
hgb stable
Assessment/Plan
-
POD#2 anorectal exam under anesthesia
Hgb 10.5 (10.6)
-Continue regular diet
-OOB as tolerated
-Pain control
-Okay for d/c later today from our perspective. Recommend holding Eliquis for at least 2 more days prior to restarting.
Subjective Data
Procedure
12/11/2024- anal EUA
Subjective Data
Date of Service: December 13, 2024
Patient states he had mild bleeidng yesterday but it was dark and full of clots. He has had no bright red bleeding since. He is tolerating a diet. No complaints.
Objective Data
-
Vital Signs
Temp Pulse Resp BP Pulse Ox
98 F 78 19 133/67 98
12/13/24 07:33 12/13/24 10:00 12/13/24 10:00 12/13/24 10:00 12/13/24 10:47
Intake & Output
12/12/24 12/13/24 12/14/24
06:59 06:59 06:59
Intake Total 350 / 350
Output Total 1000 / 1000 2600 / 2600 300 / 300
Balance -650 / -650 -2600 / -2600 -300 / -300
Intake:
IV fluids (Total) 100 / 100
Normosol 100 / 100
Blood Product Amount Infused ( 250 / 250
mL)
Packed Rbc Leukoreduced Unit 250 / 250
[id number]
Output:
Urine, Voided 1000 / 1000 2600 / 2600 300 / 300
Lab Results
12/13/24 08:44
12/12/24 06:14
Physical Exam
-
General: No Acute Distress and AOx3
Abdomen: Soft, Non Distended and Non Tender
Skin: Warm and Dry
[2024-12-13 12:15] LABS: Glucose - Point of Care 332 mg/dl (70-99)
[2024-12-13] MEDS: NOVOLOG FLEXPEN-LOW RESISTANCE 4 UNITS SC (12:29)
--- NOTE | 2024-12-13 14:04 | W.PN.HOSP.TC ---
Today's Communication/Plan
-
Cards consult
TTE
Tele monitor
Assessment / Plan
Assessment / Plan
Rectal bleeding with bright red blood and dark blood
Anal exam completed by colorectal surgery and rectum was packed
- Per Mr. Alegria was removed this morning by surgery without evidence of dark blood/bright red blood
Hemoglobin stable
Hemodynamically stable
Hold Eliquis
Follow-up colorectal surgery recommendation
Symptomatic anemia/hemorrhagic shock
Shock resolved after 2 units of PRBC
Bleeding source rectal region
S/p Kcentra
Atrial fibrillation RVR, paroxysmal,S/p STEVIE DCCV August 2016
Per colorectal surgery start Eliquis in 2 days
Continue beta-blockade
Check 2D echocardiogram
Monitor on telemetry
Urology consulted
History of HFpEF
GDMT has been held likely in the setting of hemorrhagic shock
Will reinitiate slowly as blood pressure allows
Hypertension
Losartan was not started
Type 2 diabetes
Continue long short acting insulin
Accu-Cheks
Hold metformin
Sliding scale
Anticipated Discharge: Within 24 hours
Subjective/Interval History
-
Date of Service: December 13, 2024
Seen and examined. No new complaints.
Overnight went in and out of atrial fibrillation
Now back in sinus rhythm upon my examination
Objective Data
-
Labs:
Laboratory Results
12/13/24
08:44
Hgb 10.9 L
Hct 32.7 L
Vital Signs:
Vital Signs
Temp Pulse Resp BP Pulse Ox
98 F 78 19 133/67 98
12/13/24 07:33 12/13/24 10:00 12/13/24 10:00 12/13/24 10:00 12/13/24 10:47
I&O
12/12/24 12/13/24 12/14/24
06:59 06:59 06:59
Intake Total 350 / 350
Output Total 1000 / 1000 2600 / 2600 300 / 300
Balance -650 / -650 -2600 / -2600 -300 / -300
Physical Exam
-
General: Well Developed, Well Nourished and Comfortable
HEENT: Normocephalic and Atraumatic
Respiratory: Clear to Auscultation
Cardiac: Regular Rhythm
GI: Soft, Nontender and Nondistended
Musculoskeletal: No Clubbing and No Cyanosis
Neuro: Awake, Alert and AO x 3
Psych: Calm
--- NOTE | 2024-12-13 15:50 | CM ---
CM reviewed pt with attending- anticipate dc tomorrow
Bedside meeting with pt and spouse
Plan remains for home no needs anticipated
IMM verbally reviewed, copy provided
Discharge Disposition- home, no needs anticipated, family transport
--- NOTE | 2024-12-13 15:55 | PTCARENOTE ---
Rec'd pt this AM. Remains in NSR today. vital signs stable. sugars running high, lantus increased. Education regarding plan of care provided
[2024-12-13 17:26] LABS: Glucose - Point of Care 204 mg/dl (70-99)
[2024-12-13] MEDS: NOVOLOG FLEXPEN-LOW RESISTANCE 2 UNITS SC (17:33)
[2024-12-13 21:24] LABS: Glucose - Point of Care 308 mg/dl (70-99)
[2024-12-13] MEDS: NOVOLOG FLEXPEN 3 UNITS SC (21:43)
[2024-12-14] VITALS (8 sets, daily range): BP systolic 113–160; BP diastolic 55–90
--- NOTE | 2024-12-14 02:51 | PTCARENOTE ---
Pt's bedtime blood glucose >300. EXPERIENCE DESIGNER notified and medication given per JUL. Pt denies complaints. NSR-SB maintained on CM.
--- NOTE | 2024-12-14 07:51 | W.PN.HOSP.TC ---
Addendum entered and electronically signed by Patt Barry MD 12/15/24 07:08:
yes rectal bleeding was exacerbated by Eliquis use
Acute blood loss anemia
-s/p PRBC transfusion and Kcentra on admission
Original Note:
Today's Communication/Plan
-
repeat labs this AM
TTE ordered
Assessment / Plan
Assessment / Plan
Mr. 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
Rectal bleeding with bright red blood and dark blood
-s/p Anal exam under anesthesthesia completed by colorectal surgery and rectum was packed 12/11/24
-anal packing removed at bedside on 12/12 - no obvious clots
-per CRS can resume Eliquis on 12/15
Symptomatic anemia/hemorrhagic shock
-Shock resolved after 2 units of PRBC
-Bleeding source rectal region
-S/p Kcentra
Atrial fibrillation RVR, paroxysmal,S/p STEVIE DCCV August 2016
-RVR post holding Metoprolol, now resumed
-appreciate Cardiology
-TTE repeated
-resume Eliquis on 12/15
History of HFpEF
GDMT has been held likely in the setting of hemorrhagic shock
SBP 120's off Losartan - consider resuming 1/2 dose tomorrow
Hypertension
-holding FILM HISTORIAN Losartan - consider resuming 1/2 dose tomorrow, patient checks BP at home
Type 2 diabetes
Continue long short acting insulin
Accu-Cheks
Hold metformin
Sliding scale
-A1c = 7
Anticipated Discharge: Within 24 hours
Subjective/Interval History
-
Date of Service: December 14, 2024
feeling well
no bleeding overnight
Objective Data
-
Vital Signs:
Vital Signs
Temp Pulse Resp BP Pulse Ox
97.0 F 56 16 122/75 98
12/14/24 06:09 12/14/24 06:00 12/13/24 14:00 12/14/24 06:00 12/13/24 19:38
I&O
12/13/24 12/14/24 12/15/24
06:59 06:59 06:59
Intake Total 240 / 240
Output Total 2600 / 2600 1500 / 1500
Balance -2600 / -2600 -1260 / -1260
Review of Systems
-
History Source: Patient
All other systems: Reviewed and negative
Physical Exam
-
General: No Apparent Distress
HEENT: PERRLA
Respiratory: Clear to Auscultation; Negative Wheezes
Cardiac: Regular Rhythm and S1/S2
GI: Soft and Nontender
Musculoskeletal: No Edema
Skin: Warm and Dry; Negative Rash
Neuro: AO x 3
Psych: Calm
Data Reviewed
-
Diagnostic Radiology: Report Reviewed by me
Labs: Labs Reviewed by me
[2024-12-14] MEDS: LANTUS 0.16 UNITS SC (08:13)
[2024-12-14] MEDS: CIPRO 500 MG PO (08:14)
[2024-12-14] MEDS: TOPROL XL 50 MG PO (08:14)
[2024-12-14] MEDS: CLARITIN 10 MG PO (08:14)
[2024-12-14] MEDS: CRESTOR 5 MG PO (08:14)
[2024-12-14] MEDS: FARXIGA 10 MG PO (08:14)
[2024-12-14] MEDS: NOVOLOG FLEXPEN-LOW RESISTANCE 3 UNITS SC ×2 (08:16→12:07)
[2024-12-14 08:20] LABS: Glucose - Point of Care 261 mg/dl (70-99)
--- NOTE | 2024-12-14 08:40 | W.PN.CD ---
Addendum entered and electronically signed by Elie Olmos MD 12/14/24 13:29:
Patient seen and examined in collaboration with PLANT SPECIALIST; agree with below.
- No major events overnight; no cardiac complaints this a.m.
- Remains in sinus rhythm on telemetry.
- Exam: Heart regular rate and rhythm, normal S1-S2, 2/6 systolic murmur; lungs CTA bilaterally; abdomen soft; no edema.
- A/P:
- Echocardiogram today revealed normal LVEF of 60-65%; mild aortic stenosis.
- Continue Toprol-XL 50 mg daily.
- Will resume losartan, but at a lower dose of 25 mg daily; can increase as needed for adequate blood pressure control.
- Do not resume spironolactone at this time; can reassess as outpatient.
- No further cardiac recommendations at this time; outpatient follow-up with Cardiology.
Original Note:
Documented by User: Annita Palm MD, Resident 12/14/24 10:55
Today's Communication / Plan
-
Resume blood pressure meds
Update echocardiogram today
Impression / Plan
-
Impression
This is a 74-year-old male with history of PAF, s/p cardioversion for recurrent atrial flutter. Admitted with rectal bleeding, noticed to be in A-fib with rapid ventricular response heart rate 176 yesterday. Recurrent episodes.
On telemetry review- Many PVCs, no runs of a.fib
Eliquis remains on hold
Assessment/plan
#Paroxysmal atrial fibrillation
Combination of acute anemia, metoprolol being on hold, recent stress of rectal bleeding on body
Metoprolol was interrupted
On telemetry review, has remained in NSR in last 24hrs,heart stable
Currently,Heart rate is well-controlled with metoprolol XL 50 mg daily
Not on any antiarrhythmic drugs
Eliquis on hold-(recent rectal bleed, s/p Kcentra and 2 units of blood)-resume when comfortable
[id number] score-4 points (age 74, hypertension, diabetes, CHF)
TSH normal
Update echocardiogram today
Continue telemetry
#Essential hypertension
Blood pressure slightly on the higher side
Losartan was held for anal exam/packing
consider resuming today
#Insulin-dependent diabetes mellitus
HbA1c 7
On long and short acting insulin, metformin
Also Farxiga as part of GDMT
#HFpEF
On GDMT-including losartan, spironolactone, Farxiga and beta-whit
Currently losartan and spironolactone on hold
Resume as able
Physical Exam
Vital Signs/Labs
Vital Signs
Temp Pulse Resp BP Pulse Ox
97.0 F 96 16 160/90 98
12/14/24 06:09 12/14/24 08:00 12/13/24 14:00 12/14/24 08:00 12/14/24 08:08
PT 14.3 Sec (11.4-14.6) 12/11/24 14:00
INR 1.08 12/11/24 14:00
APTT 36.3 Sec (23.4-35.0) H 12/11/24 14:00
Physical Exam
Constitutional: No acute distress and Comfortable
Cardiovascular: Rhythm & rate is regular, Pedal edema is absent, JVD pressure is normal and Systolic murmur present (left axilla)
Respiratory: Respiratory effort normal and Lungs clear to auscul.
GI: Soft and Normal bowel sounds
Neuro/Psych: Alert and AO x 3
Data Reviewed
-
Date of Service: December 14, 2024

Documented by User: Elie Olmos MD 12/14/24 13:27
Today's Communication / Plan
-
Resume losartan
Update echocardiogram today
Impression / Plan
-
Impression
This is a 74-year-old male with history of PAF, s/p cardioversion for recurrent atrial flutter. Admitted with rectal bleeding, noticed to be in A-fib with rapid ventricular response heart rate 176 yesterday. Recurrent episodes.
On telemetry review- Many PVCs, no runs of a.fib
Eliquis remains on hold
Assessment/plan
#Paroxysmal atrial fibrillation
Combination of acute anemia, metoprolol being on hold, recent stress of rectal bleeding on body
Metoprolol was interrupted
On telemetry review, has remained in NSR in last 24hrs, heart stable
Currently,Heart rate is well-controlled with metoprolol XL 50 mg daily
Not on any antiarrhythmic drugs
Eliquis on hold-(recent rectal bleed, s/p Kcentra and 2 units of blood)--resume when cleared by CRS
[id number] score-4 points (age 74, hypertension, diabetes, CHF)
TSH normal
Update echocardiogram today
Continue telemetry
#Essential hypertension
Blood pressure slightly on the higher side
Losartan was held for anal exam/packing
consider resuming today
#Insulin-dependent diabetes mellitus
HbA1c 7
On long and short acting insulin, metformin
Also Farxiga as part of GDMT
#HFpEF
Typically on GDMT-including losartan, spironolactone, Farxiga and beta-whit
Currently losartan and spironolactone on hold
Resume as able
Data Reviewed
-
EKG: Tracing Personally Visualized and interpreted (Telemetry: Sinus rhythm)
Echo: Tracing Personally Visualized and interpreted (LVEF 60-65%; mild .)
Medical Tests (PFT, Pathology etc): Discussed with Physician and Discussed with Patient
Labs: Labs Reviewed by me
[2024-12-14 09:07] LABS: Hematocrit 34.7 % (39.0-52.0); Hemoglobin 11.6 g/dL (13.0-18.0); Mean Corp Hgb Conc. 33.4 g/dL (33.0-37.0); Mean Corpuscular Volume 80.9 fL (80.0-94.0); Platelet Count 214 10^3/uL (130-400); Red Cell Dist. Width 16.6 % (11.5-14.5)
[2024-12-14 09:38] LABS: Blood Urea Nitrogen 28 mg/dl (9-20); Calcium 9.5 mg/dl (8.4-10.2); Carbon Dioxide 27 mmol/L (22-30); Chloride 99 mmol/L (98-107); Estimated Creatinine Clearance 66 ml/min; Glucose 219 mg/dl (70-99); Magnesium 1.4 mg/dl (1.6-2.3); Potassium 4.1 mmol/L (3.5-5.1); Sodium 138 mmol/L (135-145); eGFR > 60.00
--- NOTE | 2024-12-14 11:17 | PTCARENOTE ---
Patient AAOx3 , very pleasant. No signs of bleeding. Tolerating diet. Echo today. Possible discharge to home. VS stable. BP's slightly elevated. Hx hypertension. SR/SB with PVC's.
[2024-12-14] MEDS: MAGNESIUM SULFATE 50 IV (11:59)
[2024-12-14 12:04] LABS: Glucose - Point of Care 281 mg/dl (70-99)
[2024-12-14] MEDS: GLUCOPHAGE 1000 MG PO (12:20)
--- NOTE | 2024-12-14 13:00 | CM ---
CM following for discharge planning; no anticipated needs at discharge.
Plan: Discharge to home with no needs. Family will transport home via car.
--- NOTE | 2024-12-14 13:42 | W.DS.TRANS ---
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
-
Discharge Instructions:
Sleep Apnea Risk Intermediate
Discharge Diagnosis/Procedures rectal bleeding status post prostate biopsy
Diet Regular
Activity As tolerated
Driving Restrictions As prior to admission
Bathing Restrictions None
Instructions:
Stand-Alone Forms:
Changes to Home Medications: Yes
Discharge Medications:
DC Medications w/original date entered in [facility] [facility]
loratadine 10 mg tablet 10 mg PO DAILY Allergies 08/12/16
apixaban 5 mg tablet (Eliquis) 5 mg PO BID ##60 08/15/16
Held on 12/14/24. Instructions: Resume on 12/15/24.
dapagliflozin propanediol 10 mg tablet (Farxiga) 10 mg PO DAILY Diabetes 10/16/24
rosuvastatin 5 mg tablet 5 mg PO DAILY High Cholesterol 10/16/24
furosemide 40 mg tablet (Lasix) 40 mg PO PRN PRN weight gain 10/21/24
metformin 1,000 mg tablet 1,000 mg PO BID Diabetes 10/21/24
metoprolol succinate 50 mg tablet,extended release 24 hr 50 mg PO DAILY Blood Pressure 10/21/24
ciprofloxacin HCl 500 mg tablet 500 mg PO BID Infection 12/11/24
insulin aspart U-100 100 unit/mL (3 mL) subcutaneous pen See Rx Instructions .Route .COMPLEX Diabetes 12/11/24
insulin degludec 100 unit/mL (3 mL) subcutaneous pen (Tresiba FlexTouch U-100 insulin) 16 unit SC DAILY Diabetes 12/11/24
levomefolate Ca 3 mg-B6 35 mg-meB12 2 mg-algal oil 90.314 mg capsule (Foltanx RF) 1 cap PO BID Supplement 12/11/24
lidocaine HCl 4 %-menthol 1 % topical solution roll-on (Nervive Pain Relieving) 1 applic topical BID PRN foot pain 12/11/24
losartan 100 mg tablet 50 mg (1/2 x 100 mg) PO DAILY Blood Pressure #0 tabs 12/14/24
Home Medication Changes
OK to resume Eliquis on December 15, 2024
Resume 1/2 dose Losartan (50mg daily). Check blood pressure at home. Record blood pressures at home and report values to PCP.
Hold Spironolactone, follow up with outpatient providers on when OK to resume.
Continue Ciprofloxacin as prescribed
Pending Results: No
[2024-12-14] MEDS: COZAAR 25 MG PO (14:28)
--- NOTE | 2024-12-14 15:05 | W.DCSUMMARY ---
Discharge Summary
Discharge Data
Date of Admission: 12/11/24
Date of Discharge: 12/14/24
-
Pending Results: No
Hospital Course
Discharging Physician : Dr. Patt Barry
Disposition : Home
Primary care physician : Dr. Corina Ramírez
Principal Discharge diagnosis : Rectal bleeding status post prostate biopsy
Hospital Course :
Mr. 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
Triage vitals significant for hypertension, labs with Hg 13.0, Cr 1.0. During ER stay, patient's blood pressure dropped to 74/47 and he had significant amount of bleeding. He was given 2 units PRBC, IVF and admitted to the IMU with CRS consulting.
He received K Centra. Patient was taken to the OR for anorectal exam under anesthesia with findings of old blood in rectum without obvious active bleeding. Gelfoam anal tampon placed.
Patient had cessation of bleeding. His Hg remained stable. Anal packing was removed on 12/12. Per CRS recommendations, continue to hold Eliquis until 12/15.
Hospital course complicated by atrial fibrillation with RVR (in setting of holding Metoprolol for hypotension). His metoprolol was resumed, he is back in sinus on morning of discharge. He will resume Eliquis tomorrow as stated above.
Patient's blood pressure was low on admit in setting of blood loss, becoming more hypertensive on day of discharge. He is told to resume 1/2 dose Losartan and report BP readings to PCP. He is told to hold Spironolactone for now.
Patient has follow up with his Urologist in 2 days and will also follow up closely with PCP.
Time spent on discharge was 32 minutes.
Important imaging findings :
Procedure findings :
12/11/24
Procedure Performed: anorectal exam under anesthesia
Operative Findings: old blood in rectum without obvious active bleeding at distal rectum/anus
Discharge Plan
-
Patient Disposition: Home (Routine Discharge)
Discharge Diagnosis/Procedures: rectal bleeding status post prostate biopsy
Diet: Regular
Activity: As tolerated
Driving Restrictions: As prior to admission
Bathing Restrictions: None
Referrals:
Errol Miller MD [Active, [facility]] - in two to four weeks
Corina Ramírez DO [Family Provider, Internal Medicine] - in less than 1 week
Additional Discharge Medication Instructions: OK to resume Eliquis on December 15, 2024
Resume 1/2 dose Losartan (50mg daily). Check blood pressure at home. Record blood pressures at home and report values to PCP.
Hold Spironolactone, follow up with outpatient providers on when OK to resume.
Continue Ciprofloxacin as prescribed
Prescriptions:
Continued
loratadine 10 MG tablet
10 mg PO DAILY
rosuvastatin 5 mg Tablet
5 mg PO DAILY
dapagliflozin propanediol [Farxiga] 10 mg Tablet
10 mg PO DAILY
metformin 1,000 mg Tablet
1,000 mg PO BID
furosemide [Lasix] 40 MG tablet
40 mg PO PRN PRN (Reason: weight gain)
metoprolol succinate 50 MG tablet extended release 24 hr
50 mg PO DAILY
insulin aspart U-100 100 unit/mL (3 mL) insulin pen
See Rx Instructions .ROUTE .COMPLEX
Rx Instructions:
sliding scale at mealtimes
insulin degludec [Tresiba FlexTouch U-100] 100 unit/mL (3 mL) insulin pen
16 unit SC DAILY
ciprofloxacin HCl 500 mg tablet
500 mg PO BID
Patient Comments:
started taking 12/10/24
[id number]-algal oil [Foltanx RF] 3 mg-35 mg-2 mg -90.314 mg capsule
1 cap PO BID
Nervive Pain Relieving 4-1 % Solution Roll-On
1 applic TOPICAL BID PRN (Reason: foot pain)
Changed
losartan 100 mg Tablet
50 mg PO DAILY Qty: 0 0RF
Held
Eliquis 5 MG tablet
5 mg PO BID Qty: 60 3RF
Hold Instructions: Resume on 12/15/24.
Discontinued
spironolactone 25 mg tablet
25 mg PO Q48H
Discharge Orders:
Discharge Patient (As Directed); Ordered 12/14/24
Ordered By: Patt Barry
Discharge Date and Time
Print Language: LITHUANIAN
== END 2024-12-14 15:56 | disposition home or self-care (01) | DRG 377 ==
LOC: IMU 16:03
PROVIDERS: Physician Assistant; Student in an Organized Health Care Education/Training Program; ADMITTING PHYSICIAN Hospitalist; ATTENDING PHYSICIAN Student in an Organized Health Care Education/Training Program; CONSULT PHYSICIAN Internal Medicine; CONSULT PHYSICIAN Surgery; EMERGENCY PHYSICIAN Emergency Medicine; FAMILY PHYSICIAN Internal Medicine
PROC: 30283B1 Transfusion of Nonautologous 4-Factor Prothrombin Complex Concentrate into Vein, Percutaneous Approach (ICD-10-PCS; 2024-12-11)
PROC: 30233N1 Transfusion of Nonautologous Red Blood Cells into Peripheral Vein, Percutaneous Approach (ICD-10-PCS; 2024-12-11)
PROC: 0DCP8ZZ Extirpation of Matter from Rectum, Via Natural or Artificial Opening Endoscopic (ICD-10-PCS; 2024-12-11)
DX: K62.5 Hemorrhage of anus and rectum (principal); R57.8 Other shock; D68.32 Hemorrhagic disorder due to extrinsic circulating anticoagulants; I42.9 Cardiomyopathy, unspecified; I50.32 Chronic diastolic (congestive) heart failure; E78.00 Pure hypercholesterolemia, unspecified; D62 Acute posthemorrhagic anemia; I48.92 Unspecified atrial flutter; E11.9 Type 2 diabetes mellitus without complications; I11.0 Hypertensive heart disease with heart failure; R31.9 Hematuria, unspecified; I48.0 Paroxysmal atrial fibrillation; R97.20 Elevated prostate specific antigen [PSA]; Z79.01 Long term (current) use of anticoagulants; Z79.84 Long term (current) use of oral hypoglycemic drugs; Z87.891 Personal history of nicotine dependence; Z88.5 Allergy status to narcotic agent; Z88.0 Allergy status to penicillin; Z79.4 Long term (current) use of insulin
CPT/HCPCS: 80048; 80053; 82962; 83036; 83735; 84443; 85014; 85018; 85025; 85027; 85610; 85730; 86803; 86850; 86900; 86901; 86920; 93005; 93306; 99285; J7168; P9016

== ENCOUNTER 2025-01-03 08:09 | Day surgery (SDC) | payer MEDICARE, BC, SELFPAY ==
[2025-01-03] VITALS (16 sets, daily range): BP systolic 93–148; BP diastolic 51–118; BMI 30.5
[2025-01-03 09:13] LABS: Glucose - Point of Care 138 mg/dl (70-99)
[2025-01-03 12:13] LABS: ACT-LR - POC 305 Seconds (116-155)
[2025-01-03 12:27] LABS: Glucose - Point of Care 133 mg/dl (70-99)
[2025-01-03 12:33] LABS: ACT-LR - POC 311 Seconds (116-155)
--- NOTE | 2025-01-03 13:06 | ITS.CL.ABL ---
Assistant Corporate Secretary - Ablation
Ablation
Procedure Report:
AFIB / A flutter ablation:
Mr. Alegria is a very pleasant 74 yr old gentleman with medical history significant for symptomatic paroxysmal atrial fibrillation and atrial flutter is here in the EP lab for atrial fibrillation / flutter ablation
Date of Procedure:
01/03/2025
Indications:
Symptomatic persistent atrial fibrillation / atrial flutter
Pre-Operative Diagnosis:
Persistent atrial fibrillation / atrial flutter
Post-Operative Diagnosis:
Persistent atrial fibrillation / atrial flutter
Procedure Performed:
Atrial fibrillation ablation with wide area circumferential ablation (WACA) approach for pulmonary vein isolation
Atrial flutter ablation with cavo-tricuspid isthmus line block formation
Performing Physician:
Conner Mark MD
Assistants:
EP staff
Anesthesia:
See anesthesia records
Detailed Description of the Procedure:
Written informed consent was obtained from the patient after a full explanation of the risks and benefits of the procedure including the risks of sedation and anesthesia.
The patient was brought to the electrophysiology laboratory in stable condition in fasting state. Continuous electrocardiographic and hemodynamic monitoring was initiated.
The initial rhythm was atrial flutter.
The procedure site was meticulously prepared with surgical scrub and allowed to dry with no pooling. Sterile draping was applied to cover the procedure site. The image intensifier was draped with sterile bag and positioned over the patient. After
infusion of local anesthetic, vascular access was obtained under ultrasound guidance and sheaths were placed over guide wire as detailed below.
The images of the ultrasound of the femoral vessels were stored in patient chart.
Sheath and Catheter Placement:
In the right femoral vein, an 10-Trinidadian sheath was placed under ultrasound guidance for use during the ablation procedure. And mapping catheter was intermittently placed in the high right atrium, right ventricle, left atrium and left ventricle. In
the left femoral vein, a 9-Fr long sheath was placed for use during intracardiac echo procedure.
The sheaths were upgraded as needed during the case. Intracardiac catheters were positioned using direct fluoroscopic guidance.� ICE catheter was placed in RA. The following catheters / sheaths were placed
Sheaths:
��������� Agilis sheath in right femoral vein upgraded from 10Fr in right femoral vein
��������� 9Fr in left femoral vein
��������� 7Fr in right femoral vein
Catheters:
��������� The Affera Sphere 9 catheter -bidirectional D/F� - at locations of HRA, RV, LA and LV.
��������� ICE catheter -AccuNav -� at locations of RA, SVC, and RV.
��������� Bard decapolar catheter � RA and CS
Heparin was initiated after the access was obtained.
Intracardiac ECHO:
An 8-Trinidadian AcuNav intracardiac ECHO (ICE) probe was advanced through the 9-Trinidadian sheath in the left femoral vein into the right atrium under fluoroscopic and ICE ultrasound image guidance and a baseline ECHO study was performed. The left atrial
size was dilated. There was trace tricuspid regurgitation. The aortic valve was grossly normal. There was normal left ventricular size and function. There is a trace pericardial effusion. The TRISTA has baseline normal velocities. The pulmonary had
good flow identified.
During the procedure, ICE was used for monitoring of complications, guidance of trans-septal puncture, monitor the catheter position and tracking ablation lesions. No change in the pericardial space noted throughout the procedure.
Electroanatomic mapping of the right atrium:
A J-tipped guidewire was advanced through the 8-Trinidadian sheath in the right femoral vein into the superior vena cava under fluoroscopic and ICE guidance. The 8-Trinidadian sheath was exchanged for an Agilis sheath which was advanced into the superior vena
cava.
Using the Sphere 9 Affera catheter advanced through Agilis sheath into the right atrium, an electroanatomic map (EAM) of the right atrium was created using the [employer] mapping system with [employer] software mapping system.
There was borderline long HV conduction noted at baseline at 45 ms.
Ablation # 1: Typical Atrial Flutter Ablation:
The flutter was mapped and was noted concentric in the CS. The RA was mapped in atrial flutter that showed typical counter clock hooper CTI dependent atrial flutter.
The CTI ablation was done using radiofrequency with Affera sphere -9 ablation, open irrigation, force-sensing bidirectional ablation catheter in the cavotricuspid isthmus from the tricuspid annulus to the IVC ridge. �
The flutter terminated into sinus rhythm with ablation.
Once the ablation catheter reach near the IVC, the ablation energy was changed to pulsefield.
��������������� -Bidirectional block was confirmed across the CTI line with differential pacing.
��������������� -Double potentials were spaced greater than 98 msec apart.
��������������� -The conduction time across the CTI line from proximal CS pacing was 158 msec.
��������������� -EAM of the right atrium was obtained with coronary sinus pacing and showed a line of block at the CTI.
��������������� -The time interval just lateral to the ablation lesions was 158 msec and the lateral wall was 112 msec
��������������� - All these maneuvers confirmed the block at the CTI line.
- Post ablation HV interval was unchanged at 45msec
Then attention was given to atrial fibrillation ablation.
Trans-septal Puncture:
Heparin was initiated and infused to maintain appropriate ACT. A J-tipped guidewire was advanced through into the superior vena cava under fluoroscopic and ICE guidance. The Agilis sheath was advanced into the superior vena cava. An [employer]
transseptal access system was utilized to perform the trans-septal puncture. The apparatus was withdrawn until it was in contact with the fossa ovalis. The position was adjusted based on fluoroscopy and ultrasound images from ICE. Under
fluoroscopic, hemodynamic and ICE ultrasound guidance, left atrium was cannulated by advancing the needle. Once atrial septum was cannulated, the needle was pulled back and the guide wire was advanced through the needle into the left atrium. The
guide wire was advanced into the left superior pulmonary vein. Both the sheath and the dilator was advanced into the left atrium. The dilator with the needle was withdrawn. Blood was aspirated from the Agilis sheath and arterial blood confirmed. The
sheath was flushed. Saline injection noted into the left atrium on ICE. The waveform of the LA pressure was recorded. The mapping catheter was advanced in the Agilis sheath into the left pulmonary vein.
3D Electroanatomic Mapping:
Using the Sphere 9 Affera catheter advanced through Agilis sheath into the left atrium, an electroanatomic map (EAM) of the left atrium was created using [employer] mapping system with Prism-1 software. The map was used for localization of catheter
position and tacking of ablation lesions. The EAM of the left atrium showed a total of 4 PVs with two left and the two right sided pulmonary veins with all electrically connected to the body the LA. It showed no significant scar on the posterior
wall of the LA. The LA was dilated in size.
Following the EAM, preparation were made for ablation.
Ablation:
Ablation # 2: Pulmonary vein Isolation:
Pulsed field ablation was performed using an open irrigation, bidirectional, contact sensing, dual energy ablation catheter ([employer] sphere -9) by completing the circumferential lesions around the left and right pulmonary veins achieving pulmonary
vein isolation.
Confirmation of the PVI and bidirectional block:
Following achievement of entrance block at the pulmonary veins, pacing from the Sphere 9 affera catheter in each of the four veins at 20 milliamps for 4 milliseconds showed entrance and exit block.
The LA was mapped with The [employer] mapping system with Prism-1 software in sinus rhythm confirming the line of block at the ablation lesions lines.
�
EP study:
Sinus Node Function: The sinus node functions are within acceptable normal range.
Atrioventricular Nilda Function: �Post ablation HV interval was unchanged at 45 msec
Procedure End
ICE study was done again that showed no epicardial accumulation. No complications noted.
Following the completion of the EP study, catheters were removed. Protamine 30 mg was given at the end of the procedure and ACT was checked repeatedly. The sheaths were removed and hemostasis achieved with Figure of 8 suture and manual compression
after acceptable ACT is achieved.
Left atrial Pressure:
Pre-Procedure: Mean LA pressure was 10mmHg
Post-Procedure: Mean LA pressure was 14mmHg
Post-Procedure: Mean RA pressure was 9mmHg.
Estimated Blood loss:
<10 cc
Specimens Removed:
None.
Implants / Devices:
None
Urine output:
None
Packs / Drains/ Tubes:
None
Instrument / Sponge Count Correct:
Yes
Complications of the Procedure:
None
Condition of Patient at Time of Transfer:
Hemodynamically stable with no neurological or vascular compromise.
Summary:
��������� Successful atrial fibrillation ablation with circumferential bidirectional line of block at pulmonary venin antra (Pulmonary vein isolation), atrial flutter ablation with cavo-tricuspid isthmus line block formation.
Figures from the Procedure:
Typical flutter
--- NOTE | 2025-01-03 15:32 | W.PN.UPDATE ---
Update Note
Progress Note Update
Pt seen post PFA. Right groin with vascade closure, no ht/bleeding. OOB ambulating, urinating without difficulty. Post EKG NSR 1st deg AVB as before, no acute changes. Resume eliquis tonight at usual time. Continue other meds as before. Followup at
[facility] as scheduled. Home today if groin site/tele remain stable.
== END 2025-01-03 15:55 | disposition home or self-care (01) ==
LOC: CATH 08:09
PROVIDERS: ATTENDING PHYSICIAN Internal Medicine Cardiovascular Disease; FAMILY PHYSICIAN Internal Medicine; OTHER PHYSICIAN Internal Medicine Cardiovascular Disease
DX: I48.0 Paroxysmal atrial fibrillation (principal); I48.19 Other persistent atrial fibrillation; I48.3 Typical atrial flutter; Z79.01 Long term (current) use of anticoagulants; I44.0 Atrioventricular block, first degree; Z88.0 Allergy status to penicillin; Z88.5 Allergy status to narcotic agent; Z88.8 Allergy status to other drugs, medicaments and biological substances
CPT/HCPCS: C1769; C1894; C1733; C1766; C1892; C1759; C1730; 82962; 85347; 86850; 86900; 86901; 93005; 93655; 93656; C1760